=== PATIENT | male | born 1955 | race Caucasian/White ===

== ENCOUNTER 2021-08-27 06:44 | Day surgery (SDC) | payer MEDICARE, OTHER ==
[~2021-08-27] VITALS: Ht 165 cm; Wt 75.0 kg
[~2021-08-27 06:44] MED LIST: ASPIRIN EC81 MG PO; CALCIUM 600+D1 EAC3 PO; LISINOPRIL20 MG PO; NORCO 5-325 TA1 EACH PO; VITAMIN C1000 MG PO
--- NOTE | 2021-08-27 11:26 | NUR ---
PT HAD A LTKR THIS DATE. PT. HAS A RW. PT. REQUESTED [facility] OUTPT THERAPY. FIRST APPT. IS 08/29/21 @ 10:15 A.M. PT SIGNED CHOICE FORM AND COPY GIVEN.
[2021-08-28 03:18] LABS: BASOPHIL 0.1 % (0-2); EOSINOPHIL 0 % (0-7); HCT 33.8 % (42.0-52.0); HGB 11.2 g/dl (13.2-18.0); MCH 33.4 pg (25.0-31.0); MCHC 33.1 g/dL (32.0-36.0); MCV 100.9 fL (78.0-100.0); MPV 9.8 fL (6.0-9.5); NEUTROPHIL 87.5 % (41-80); NRBC 0; PLT 208 K/uL (150-400); RBC 3.35 M/uL (4.70-6.00); RDW 12.9 % (11.5-14.0); WBC 11.4 K/uL (4.0-10.5)
[2021-08-28 03:43] LABS: BUN/CREAT RATIO (CALC) 19.6 RATIO; CREATININE 0.92 mg/dL (0.67-1.17); POTASSIUM 4.2 mmol/L (3.5-5.1)
[2021-08-28] MEDS ORDERED: FEOSOL325 MG PO (08:59)
[2021-08-28] MEDS ORDERED: ASPIRIN EC81 MG PO (10:08)
== END 2021-08-28 11:00 | disposition home or self-care (01) ==
LOC: FAS 06:44 → FOFB 09:48 → FAS 11:00
PROVIDERS: Orthopaedic Surgery
DX: M17.12 Unilateral primary osteoarthritis, left knee (principal); M79.4 Hypertrophy of (infrapatellar) fat pad; M21.162 Varus deformity, not elsewhere classified, left knee; I10 Essential (primary) hypertension; Z90.49 Acquired absence of other specified parts of digestive tract; Z79.01 Long term (current) use of anticoagulants; Z79.82 Long term (current) use of aspirin
CPT/HCPCS: 36415; 73560; 80048; 85025; 86850; 86900; 86901; 94010; 97162; 97166; 97530-GP; 97535; C1713; C1776; J0171; J0697; J1100; J1170; J1885; J2250; J2270; J2405; J2704; J2795; J3010; J7120